=== PATIENT | male | born 1970 | race Caucasian/White ===

== ENCOUNTER 2021-07-13 07:40 | Outpatient (REF) | payer OTHER, SELFPAY ==
[2021-07-13 11:44] LABS: Alanine Aminotransferase 100 U/L (0-40); Albumin Level 4.4 g/dL (3.5-5.0); Alkaline Phosphatase 56 U/L (39-117); Anion Gap 14 (12-20); Aspartate Amino Transferase 51 U/L (5-37); Bilirubin Total 1.1 mg/dL (0.0-1.0); Blood Urea Nitrogen 16 mg/dL (9-16); Calcium 9.4 mg/dL (8.4-10.2); Carbon Dioxide 26 mmol/L (22-29); Chloride 101 mmol/L (96-108); Cholesterol 229 mg/dL; Estimated Glomerular Filt Rate > 60; Glucose Fasting 133 mg/dL (60-99); HDL Cholesterol 36 mg/dL; LDL Cholesterol Calculated 162 mg/dl; Sodium 137 mmol/L (135-145); Total Protein 7.2 g/dL (6.5-8.0); Triglycerides 159 mg/dL
[2021-07-13 12:05] LABS: Prostate Specific Antigen 3.35 ng/mL (<0.05-4.0)
== END 2021-07-13 07:41 | disposition home or self-care (01) ==
LOC: HO.MANLDS 07:40
PROVIDERS: PCP Internal Medicine; Visit Provider Internal Medicine
DX: Z12.5 Encounter for screening for malignant neoplasm of prostate (principal); I10 Essential (primary) hypertension; E78.00 Pure hypercholesterolemia, unspecified
CPT/HCPCS: 36415; 80053; 80061; 84153

== ENCOUNTER 2022-02-06 07:43 | Outpatient (REF) | payer OTHER, SELFPAY ==
[2022-02-06 14:16] LABS: Estimated Average Glucose 131 mg/dL; Hemoglobin A1c % 6.2 %
[2022-02-06 14:27] LABS: Alanine Aminotransferase 63 U/L (0-40); Albumin Level 4.2 g/dL (3.5-5.0); Alkaline Phosphatase 51 U/L (39-117); Aspartate Amino Transferase 30 U/L (5-37); Bilirubin Direct 0.5 mg/dL (0.0-0.5); Bilirubin Total 1.6 mg/dL (0.0-1.0); Total Protein 7.1 g/dL (6.5-8.0)
== END 2022-02-06 07:44 | disposition home or self-care (01) ==
LOC: HO.MANLDS 07:43
PROVIDERS: PCP Internal Medicine; Visit Provider Internal Medicine
DX: R73.01 Impaired fasting glucose (principal); R94.5 Abnormal results of liver function studies
CPT/HCPCS: 36415; 80076; 83036

== ENCOUNTER 2023-03-09 07:48 | Outpatient (REF) | payer OTHER, SELFPAY ==
[2023-03-09 11:24] LABS: MANUAL DIFF FLAG NO
[2023-03-09 11:36] LABS: Basophils Percent Auto 0.5 % (0-2); Eosinophils Absolute Auto 0.3 X10*3/uL (0.0-0.4); Eosinophils Percent Auto 5.9 % (0-4); Hematocrit 44.7 % (42.0-52.0); Hemoglobin 14.7 g/dl (14.0-18.0); Imm Gran Abs Auto 0.03 X10*3/uL (0.00-0.03); Imm Gran Pct Auto 0.5 % (0.0-0.4); Lymphocytes Absolute Auto 1.7 X10*3/uL (1.2-4.9); Lymphocytes Percent Auto 28.6 % (20-40); Mean Corpuscular HGB Conc 32.9 g/dl (31.0-36.0); Mean Corpuscular Hemoglobin 29.1 pg (27.0-33.0); Mean Corpuscular Volume 88.3 fL (80.0-98.0); Mean Platelet Volume 10.8 fL (9.4-12.4); Monocytes Absolute Auto 0.6 X10*3/uL (0.1-1.2); Monocytes Percent Auto 10.9 % (2-11); Neutrophils Absolute Auto 3.1 x10*3/uL (2.0-8.3); Neutrophils Percent Auto 53.6 % (45-73); Platelet Count 220 X10*3/uL (160-400); Red Blood Count 5.06 X10*6/uL (4.60-5.80); Red Cell Distribution Width 12.5 % (11.0-16.0); White Blood Count 5.8 X10*3/uL (4.8-10.8)
[2023-03-09 12:02] LABS: Estimated Average Glucose 148 mg/dL; Hemoglobin A1c % 6.8 %
[2023-03-09 12:51] LABS: Alanine Aminotransferase 99 U/L (0-40); Albumin Level 3.9 g/dL (3.5-5.0); Alkaline Phosphatase 52 U/L (39-117); Anion Gap 10 (12-20); Aspartate Amino Transferase 50 U/L (5-37); Bilirubin Total 1.6 mg/dL (0.0-1.0); Blood Urea Nitrogen 15 mg/dL (9-16); Calcium 9.2 mg/dL (8.4-10.2); Carbon Dioxide 27 mmol/L (22-29); Chloride 103 mmol/L (96-108); Cholesterol 203 mg/dL; Estimated Glomerular Filt Rate > 60; Glucose Random 160 mg/dL (60-115); HDL Cholesterol 30 mg/dL; LDL Cholesterol Calculated 127 mg/dl; Potassium 4.1 mmol/L (3.3-5.1); Sodium 136 mmol/L (135-145); Triglycerides 233 mg/dL
[2023-03-09 12:56] LABS: Prostate Specific Antigen 3.41 ng/mL (<0.05-4.0)
[2023-03-09 13:12] LABS: Vitamin D 25-OH Total 26.2 ng/mL (>30)
== END 2023-03-09 07:49 | disposition home or self-care (01) ==
LOC: HO.MANLDS 07:48
PROVIDERS: Visit Provider Internal Medicine
DX: I10 Essential (primary) hypertension (principal); R73.01 Impaired fasting glucose; Z12.5 Encounter for screening for malignant neoplasm of prostate
CPT/HCPCS: 36415; 80053; 80061; 82306; 83036; 84153; 85025

== ENCOUNTER 2023-05-30 08:36 | Outpatient (REF) | payer OTHER, SELFPAY ==
[2023-05-30 12:51] LABS: Estimated Average Glucose 120 mg/dL; Hemoglobin A1c % 5.8 % (<6.0)
== END 2023-05-30 08:37 | disposition home or self-care (01) ==
LOC: HO.MANLDS 08:36
PROVIDERS: Visit Provider Internal Medicine
DX: E11.9 Type 2 diabetes mellitus without complications (principal)
CPT/HCPCS: 36415; 83036

== ENCOUNTER 2023-12-19 08:11 | Outpatient (REF) | payer OTHER, SELFPAY ==
[2023-12-19 13:51] LABS: Estimated Average Glucose 123 mg/dL; Hemoglobin A1c % 5.9 % (<6.0)
== END 2023-12-19 08:12 | disposition home or self-care (01) ==
LOC: HO.MANLDS 08:11
PROVIDERS: Visit Provider Internal Medicine
DX: E11.9 Type 2 diabetes mellitus without complications (principal)
CPT/HCPCS: 36415; 83036

== ENCOUNTER 2024-11-14 07:52 | Outpatient (REF) | payer OTHER, SELFPAY ==
--- OUTSIDE RECORDS SUMMARY | 2024-11-14 07:58 | XMS_ITS | Data Portability ---
Author Organization [facility] Service Address [address] [place] [address] Assessment Encounter Date Assessment Date Assessment LastModified by Organization Details LastModified Time 11/10/2022 11/10/2022 [id number] [place] [id number] ([employer]) : MDM LOW MUST MEET 2 OF 3 ELEMENTS: PROBLEMS, DATA OR RISK ELEMENT 1: PROBLEMS ADDRESSED (LOW): 2 OR MORE SELF-LIMITED OR MINOR PROBLEMS OR 1 STABLE CHRONIC ILLNESS OR 1 ACUTE UNCOMPLICATED ILLNESS OR INJURY ELEMENT 2: DATA TO BE REVISED AND ANALYZED (LOW) MUST MEET 1 OF 2 CATEGORIES: CATEGORY 1. REVIEW OF PRIOR EXTERNAL NOTES/RESULTS, ORDERING OF TEST(S) CATEGORY 2. ASSESSMENT REQUIRING INDEPENDENT HISTORIAN(S) INCLUDE WHO THE HISTORIAN IS AND RELATION TO PT AND WHY PT IS UNABLE TO GIVE COMPLETE HISTORY ELEMENT 3: RISK (LOW) RISK OF COMPLICATIONS AND/OR MORBIDITY OR MORTALITY OF PATIENT MANAGEMENT PROVIDER MUST THOROUGHLY DOCUMENT ALL OF THE ELEMENTS COVERED Not available 11/10/2022 14:05:52 03/14/2023 03/14/2023 [id number] [place] [address] ([employer]) MDM HIGH MUST MEET 2 OUT OF 3 ELEMENTS: PROBLEMS, DATA OR RISK ELEMENT 1: PROBLEMS 1 OR MORE CHRONIC ILLNESS W/SEVERE EXACERBATION, PROGRESSION MAY REQUIRE HOSPITAL LEVEL CARE OR 1 ACUTE OR CHRONIC ILLNESS OR INJURY THAT POSES A THREAT TO LIFE OR BODILY FUNCTION ELEMENT 2: DATA: MUST MEET 2 OF 3 CATEGORIES CATEGORY 1 REVIEW OF PRIOR EXTERNAL NOTES REVIEW OF THE RESULTS ORDERING OF EACH TEST ASSESSMENT REQUIRING INDEPENDENT HISTORIAN(S) CATEGORY 2: INDEPENDENT INTERPRETATION OF TESTS BY ANOTHER PROVIDER/SPECIALI ST CATEGORY 3: DISCUSSION OF MGT OR TEST INTERPRETATION W/EXTERNAL PHYSICIAN/SPECIAL IST ELEMENT 3: RISK HIGH RISK OF MORBIDITY FROM ADDITIONAL DIAGNOSTIC TESTING OR TREATMENT PROVIDER MUST THOROUGHLY DOCUMENT EACH ELEMENT THAT IS COVERED Not available 03/14/2023 10:16:02 06/04/2023 06/04/2023 [id number] [place] [id number] ([employer]) : MDM LOW MUST MEET 2 OF 3 ELEMENTS: PROBLEMS, DATA OR RISK ELEMENT 1: PROBLEMS ADDRESSED (LOW): 2 OR MORE SELF-LIMITED OR MINOR PROBLEMS OR 1 STABLE CHRONIC ILLNESS OR 1 ACUTE UNCOMPLICATED ILLNESS OR INJURY ELEMENT 2: DATA TO BE REVISED AND ANALYZED (LOW) MUST MEET 1 OF 2 CATEGORIES: CATEGORY 1. REVIEW OF PRIOR EXTERNAL NOTES/RESULTS, ORDERING OF TEST(S) CATEGORY 2. ASSESSMENT REQUIRING INDEPENDENT HISTORIAN(S) INCLUDE WHO THE HISTORIAN IS AND RELATION TO PT AND WHY PT IS UNABLE TO GIVE COMPLETE HISTORY ELEMENT 3: RISK (LOW) RISK OF COMPLICATIONS AND/OR MORBIDITY OR MORTALITY OF PATIENT MANAGEMENT PROVIDER MUST THOROUGHLY DOCUMENT ALL OF THE ELEMENTS COVERED Not available 06/04/2023 12:28:48 12/21/2023 12/21/2023 [id number] [place] [address] ([employer]) MDM MODERATE MUST MEET 2 OUT OF 3 ELEMENTS: PROBLEMS, DATA OR RISK ELEMENT 1: PROBLEMS ADDRESSED 1 OR MORE CHRONIC ILLNESS WITH EXACERBATION OR 2 OR MORE STABLE CHRONIC ILLNESSES OR 1 UNDIAGNOSED NEW PROBLEM OR 1 ACUTE ILLNESS W/SYMPTOMS OR 1 ACUTE COMPLICATED INJURY ELEMENT 2: DATA MUST MEET 1 OF 3 CATEGORIES CATEGORY 1: REVIEW OF PRIOR EXTERNAL NOTES, REVIEW OF RESULTS, ORDERING OF EACH TEST, ASSESSMENT REQUIRING INDEPENDENT HISTORIAN OR CATEGORY 2: INDEPENDENT INTERPRETATION OF TESTS BY ANOTHER PHYSICIAN OR SPECIALIST OR CATEGORY 3: DISCUSSION OF MGT OR TEST INTERPRETATION W/EXTERNAL PHYSICIAN OR SPECIALIST ELEMENT 3: RISK RISK OF COMPLICATIONS AND/OR MORBIDITY OR MORTALITY OF PATIENT MANAGEMENT PROVIDER MUST THOROUGHLY DOCUMENT EACH ELEMENT THAT IS COVERED Not available 12/21/2023 10:49:53 10/13/2024 10/13/2024 [id number] [place] [id number] ([employer]) MDM MODERATE MUST MEET 2 OUT OF 3 ELEMENTS: PROBLEMS, DATA OR RISK ELEMENT 1: PROBLEMS ADDRESSED 1 OR MORE CHRONIC ILLNESS WITH EXACERBATION OR 2 OR MORE STABLE CHRONIC ILLNESSES OR 1 UNDIAGNOSED NEW PROBLEM OR 1 ACUTE ILLNESS W/SYMPTOMS OR 1 ACUTE COMPLICATED INJURY ELEMENT 2: DATA MUST MEET 1 OF 3 CATEGORIES CATEGORY 1: REVIEW OF PRIOR EXTERNAL NOTES, REVIEW OF RESULTS, ORDERING OF EACH TEST, ASSESSMENT REQUIRING INDEPENDENT HISTORIAN OR CATEGORY 2: INDEPENDENT INTERPRETATION OF TESTS BY ANOTHER PHYSICIAN OR SPECIALIST OR CATEGORY 3: DISCUSSION OF MGT OR TEST INTERPRETATION W/EXTERNAL PHYSICIAN OR SPECIALIST ELEMENT 3: RISK RISK OF COMPLICATIONS AND/OR MORBIDITY OR MORTALITY OF PATIENT MANAGEMENT PROVIDER MUST THOROUGHLY DOCUMENT EACH ELEMENT THAT IS COVERED Not available 10/13/2024 10:40:57 Plan of Treatment Reminders Order Date Submit Date Provider Last Modified By Organization Details Last Modified Time Details Appointments FOLLOW UP 15 2024 09:30A M DR DING Not available Not available Not available Lab HbA1c (hemoglob in A1c), blood 2024 025 [facility], [address] [place] [address], [id number], 10/13/2024 10:49:08 HbA1c (hemoglob in A1c), blood 2022 023 [facility], [address] [place] [address], [id number], 06/04/2023 12:35:26 HbA1c (hemoglob in A1c), blood 2022 023 [facility], [address] [place] [address], [id number], 03/14/2023 10:10:38 HbA1c (hemoglob in A1c), blood 2022 023 [facility], [address] [place] [address], [id number], 11/10/2022 14:15:26 CMP, serum or plasma 2022 023 [facility], [address] [place] [address], [id number], 03/12/2023 11:09:47 CBC 2022 023 [facility], [address] [place] [address], [id number], 11/10/2022 14:15:26 lipid panel, blood 2022 023 [facility], [address] [place] [address], [id number], 11/10/2022 14:15:26 PSA, serum or plasma 2022 023 [facility], [address] [place] [address], [id number], 11/10/2022 14:15:26 vitamin D, 25-hydrox y, total, serum 2022 023 [facility], [address] [place] [address], [id number], 11/10/2022 14:15:26 Referral None recorded. Procedures None recorded. Surgeries None recorded. Imaging None recorded. Medication Orders Ozempic 0.25 mg or 0.5 mg (2 mg/1.5 mL) subcutane ous pen injector 2022 023 [facility]/Pharmacy #[facility], [address] [place], [address], 03/14/2023 10:42:26 escitalop fan 10 mg tablet 2022 023 [facility]/Pharmacy #5, [address] [place], [address], 03/14/2023 09:28:34 diazepam 5 mg tablet 2022 023 [facility]armacy #[facility], [address] [place], [address], 03/14/2023 09:28:31 Patient TargetsNo targets recorded. Patient Instructions Encounter Date Encounter Id Patient Instructions Last Modified By Organization Details Last Modified Time 11/10/2022 [id number] prediabetes: car e instructions Not available 11/10/2022 14:11:53 learning about stress Not available 11/10/2022 14:11:53 03/14/2023 [id number] learning about type 2 diabetes Not available 03/14/2023 10:07:10 type 2 diabetes: care instructions Not available 03/14/2023 10:07:10 10/13/2024 [id number] prediabetes: car e instructions Not available 10/13/2024 10:43:12 sleep apnea: car e instructions Not available 10/13/2024 10:43:12 ojeda's palsy: care instructions Not available 10/13/2024 10:43:12 Reason for Referral None Reported. Results Created Date Observation Date Name Description Value Unit Range Abnormal Flag Note LastModifiedBy Organization Detail LastModifiedTime Result Notes None recorded. Problems Name Problem SNOMED Code Status Onset Date Resolution Date Notes Provider Name and Address Organization Details Recorded Time Hyperten sive disorder 34391232 Active 2019 Not Available [facility] 3 13:57:34 Serum choleste rol borderli [place] 994994546 Active 2019 Not Available [facility] 3 13:57:34 Obesity 887830415 Active 2019 Not Available [facility] 3 13:57:34 Obstruct derek sleep apnea syndrome 12023618 Active 2019 Not Available [facility] 3 13:57:34 Arthriti s of knee 229033630 Active 2020 Not Available [facility] 3 13:57:34 Impaired fasting glycemia 908730315 Active 2021 Not Available [facility] 3 13:57:34 Panic attack 686119548 Active 2022 RUIZ REYES [address] [place], [address], [facility] 3 11:51:45 Stress 91628790 Active 2022 James Ding DO [address] [place], [address], [facility] 3 14:11:06 Type 2 diabetes mellitus 43047866 Completed 202206/04/2023 Removal Reason: able to get down to his pre diab level with a1c of 5.8 James Ding DO [address] [place], [address], [facility] 3 12:25:00 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 Medical Equipment None Reported. Allergies No known drug allergies Medications Name Sig Start Date Stop Date Status Note LastModified by Organization Details LastModified Time valacyclovi r 1 gram tablet TAKE 1 TABLET BY MOUTH THREE TIMES A DAY FOR 7 DAYS active Not Available Not Available No t Available meloxicam 15 mg tablet TAKE 1 TABLET BY MOUTH EVERY DAY FOR 30 DAYS 2024 active Not Available Not Available Not Avai lable FreeStyle Lancets 28 gauge USE TWICE A DAY active Not Available Not Available No t Available lisinopril 20 mg tablet TAKE 1 TABLET BY MOUTH EVERY DAY active Not Available Not Available No t Available prednisone 20 mg tablet TAKE 3 TABLETS (60 MG TOTAL) BY MOUTH DAILY WITH BREAKFAST FOR 7 DAYS. active Not Available Not Available No t Available diazepam 10 mg tablet TAKE 1 TABLET BY MOUTH TWICE A DAY NEEDED FOR 5 DAYS 03/14 completed Not Available Not Available Not Available epinephrine 0.3 mg/0.3 mL injection, auto-inject or USE DIRECTED FOR ANAPHYLAX IS AND CALL 911 active Not Available Not Available No t Available diazepam 5 mg tablet Take 1 tablet twice a day by oral route as needed for 30 days. 03/14 completed Not Available Not Available Not Available escitalopra m 10 mg tablet Take 1 tablet every day by oral route for 30 days. 03/14 completed Not Available Not Available Not Available FreeStyle Lite Meter kit USE DIRECTED. active Not Available Not Available No t Available OneTouch Verio test strips USE 1 STRIP EVERY DAY BY MISCELL ROUTE active Not Available Not Available No t Available OneTouch Verio Flex Meter USE DIRECTED. active Not Available Not Available No t Available Ozempic 0.25 mg or 0.5 mg (2 mg/1.5 mL) subcutaneou s pen injector Inject 0.25 mg every week by subcutane ous route for 30 days. 03/14 completed Not Available Not Available Not Available OneTouch Delica Plus Lancet 33 gauge USE DIRECTED. ONCE DAILY active Not Available Not Available No t Available Ozempic 0.25 mg or 0.5 mg (2 mg/3 mL) subcutaneou s pen injector Inject 0.25 mg every week by subcutane ous route for 90 days. 06/04 completed Not Available Not Available Not Available Vitals Date Recorded Body height Body mass index (BMI) Body weight Heart rate Oxygen saturation Oxygen saturation in Arterial blood by Pulse oximetry Systolic blood pressure Diastolic blood pressure Provider Name and Address Organization Details Last Updated DateTime 3 177.17 cm 44.2 kg/m2 312584. 98 g 97 /min 99 % 99 % 150 mm[Hg] 80 mm[Hg] James iDng, DO [address] [place] [address], [address] [facility] 3 13:43:33 Date Recorded Body height Body mass index (BMI) Body weight Heart rate Oxygen saturation Oxygen saturation in Arterial blood by Pulse oximetry Systolic blood pressure Diastolic blood pressure Provider Name and Address Organization Details Last Updated DateTime 3 177.17 cm 44.1 kg/m2 206261. 75 g 120 /min 98 % 98 % 150 mm[Hg] 80 mm[Hg] James Ding, DO [address] [place] [address], [address] [facility] 3 09:29:43 Date Recorded Body height Body mass index (BMI) Body weight Heart rate Oxygen saturation Oxygen saturation in Arterial blood by Pulse oximetry Systolic blood pressure Diastolic blood pressure Provider Name and Address Organization Details Last Updated DateTime 3 177.17 cm 41.2 kg/m2 530310. 83 g 85 /min 98 % 98 % 136 mm[Hg] 80 mm[Hg] Dacia Paul [facility] 3 11:42:50 Date Recorded Body height Body mass index (BMI) Body weight Heart rate Oxygen saturation Oxygen saturation in Arterial blood by Pulse oximetry Systolic blood pressure Diastolic blood pressure Provider Name and Address Organization Details Last Updated DateTime 4 177.17 cm 41 kg/m2 243531. 23 g 103 /min 98 % 98 % 130 mm[Hg] 64 mm[Hg] James Ding, DO [address] [place], [address], [facility] 4 10:09:10 Date Recorded Body height Body mass index (BMI) Body weight Heart rate Oxygen saturation Oxygen saturation in Arterial blood by Pulse oximetry Systolic blood pressure Diastolic blood pressure Provider Name and Address Organization Details Last Updated DateTime 5 177.17 cm 41 kg/m2 630396. 23 g 115 /min 98 % 98 % 160 mm[Hg] 100 mm[Hg] Dacia Simmonsmond [facility] 5 10:23:38 Social History Question Answer Notes LastModified by Organizat ion Details LastModified Time Tobacco Smoking Status Never Smoker Not Available [facility] 07/20/2020 03:36:23 What Was The Date Of Your Most Recent Tobacco Screening? 10/13/2024 [email or web address] Information not available 10/13/2024 Do You Or Have You Ever Used Any Other Forms Of Tobacco Or Nicotine? No Information not available 11/10/2022 Sex: Unknown Functional Status None recorded. Mental Status None recorded. Family History Nothing Reported. Medical History No medical history recorded. Immunizations Vaccine Type Date Status Note Provider Nam e and Address Organization Details Recorded Time Td (adult) 07/23/2021 completed Not Available [facility] 10/31/2022 13:57:34 COVID-19, mRNA, LNP-S, PF, 100 mcg/0.5mL dose or 50 mcg/0.25mL dose 09/20/2021 completed Martha Gencarelle julieta [facility] 11/10/2022 13:32:47 COVID-19, mRNA, LNP-S, PF, 100 mcg/0.5mL dose or 50 mcg/0.25mL dose 10/13/2020 completed Martha Gencarelle julieta [facility] 11/10/2022 13:32:47 COVID-19, mRNA, LNP-S, PF, 100 mcg/0.5mL dose or 50 mcg/0.25mL dose 11/13/2020 completed Martha Gencarelle [facility] 11/10/2022 13:32:47 Past Encounters Encounter ID Performer Location Encounter Start Date Encounter Closed Date Diagnosis/Indication Diagnosis SNOMED-CT Code Diagnosis ICD10 Code Diagnosis Note [id number] James Ding [facility] [address] [facility], [place] [address] 09/30/2019 09:01:55 09/30/2019 09:36:07 Hypertensive disorder 35996717 I10 will need to follow as his bp is borderline and his wgt gain is huge Serum chol esterol borderline high 667603964 E78.00 will need fbw Obesity 930592960 E66.9 will need to go on crash diet etc Pain in left knee 037388 8082 90480 M25.562 hurt overt the summer xr needed ? meniscal injury Obstructiv e sleep apnea syndrome 57443798 G47.33 needs study Pain in right heel 75115 17981 614388 M79.671 needs xr [id number] James Ding [facility] [address] [facility],[place] [address] 10/10/2019 14:31:21 10/10/2019 15:40:17 Obstructive sleep apnea syndrome 72762094 G47.33 needs cpap device will call Hypertensive disorder 38 578777 I10 will need to follow as his bp is borderline and his wgt gain is huge await after tx for sleep apnea Osteoarthr itis of knee 535426857 M17.9 will need to follow wgt loss is mahoney [id number] James Ding DO [facility] [address] [facility],[place] [address] 01/12/2020 13:51:13 01/12/2020 14:31:33 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 0695030612 65956 G56.12 Obstructiv e sleep apnea syndrome 83321558 G47.33 doing great with new cpap device Hypertensive disorder 38 630455 I10 will cont lisinopril for now but anticipate [place] [id number] James Ding [facility] [address] [facility], [place] [address] 02/06/2020 09:18:38 02/06/2020 09:54:18 Hypertensive disorder 91459667 I10 will cont lisinopril for now but anticipate we will be able to lower dose as MANNY d cont tx Obstructiv e sleep apnea syndrome 96936905 G47.33 doing great with new cpap device Obesity 513176962 E66.9 will need to keep exercising and working hard no wgt loss but pants fitting much better [id number] James Ding [facility] [address] [facility] [facility] [place] [place] [address] 01/14/2021 09:05:42 01/14/2021 11:20:17 Hypertensive disorder 50407509 I10 will cont lisinopril for now but anticipate we will be able to lower dose as MANNY d cont tx Serum chol esterol borderline high 363131583 E78.00 will need fbw Arthritis of knee 519276 002 M13.869 [id number] James Ding [facility] [address] [facility], [place] [address] 07/20/2021 09:01:30 07/20/2021 09:52:00 Hypertensive disorder 20388825 I10 will cont lisinopril for now but anticipate we will be able to lower dose as MANNY d cont tx Obstructiv e sleep apnea syndrome 56905891 G47.33 doing great with new cpap device Liver func tion tests outside reference range 560817059 R94.5 elevated and he will stop etoh and rechk Impaired f asting glycemia 225191536 R73.01 Hearing loss 57511342 H9 1.93 [id number] James Ding [facility] [address] [facility],[place] [address] 02/17/2022 11:58:21 02/17/2022 13:03:03 Hypertensive disorder 20944318 I10 will cont lisinopril for now but anticipate we will be able to lower dose as MANNY d cont tx Serum chol esterol borderline high 076318024 E78.00 will need fbw Screening for malignant neoplasm of colon 487613500 Z12.11 will order Impaired f asting glycemia 555692784 R73.01 a1c is 6.2 and we will cont to follow [id number] James Ding [facility] [address] [facility],[place] [address] 11/10/2022 13:32:01 11/10/2022 14:18:04 Hypertensive disorder 40068737 I10 will cont lisinopril for now but anticipate we will be able to lower dose as MANNY cont tx Impaired f asting glycemia 756196580 R73.01 a1c is 6.2 and we will cont to follow Stress 14077558 Z73.3 [id number] James Ding [facility] [address] [facility],[address] [facility] [place] [address] 03/14/2023 09:21:34 03/14/2023 10:29:11 Hypertensive disorder 65543064 I10 will cont lisinopril for now but anticipate we will be able to lower dose as MANNY cont tx Obstructiv e sleep apnea syndrome 31610156 G47.33 doing great with new cpap device Screening for malignant neoplasm of colon 028361880 Z12.11 will order Type 2 olga betes mellitus 08848990 E11.9 new onset long discussion [id number] James Ding [facility] [address] [facility],[place] [address] 06/04/2023 11:09:01 06/04/2023 12:58:29 Hypertensive disorder 23316123 I10 will cont lisinopril for now but anticipate we will be able to lower dose as MANNY cont tx Impaired f asting glycemia 923542061 R73.01 a1c is 6.2 and we will cont to follow [id number] James Ding [facility] [address] [facility],[place] [address] 12/21/2023 10:01:33 12/21/2023 10:59:07 Hypertensive disorder 49358343 I10 will cont lisinopril for now but anticipate we will be able to lower dose as MANNY cont tx Obesity 249353185 E66.9 will need to keep exercising and working hard no wgt loss but pants fitting much better Impaired f asting glycemia 884220966 R73.01 a1c is 5.9 doing great and we will cont to follow [id number] DO [facility] [address] [facility],[place] [address] 10/13/2024 10:16:25 10/13/2024 10:47:53 Hypertensive disorder 54309786 I10 stress at home is a factorwill check bp at home and bring in readings in 1 month 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 almost total resolution Obstructiv e sleep apnea syndrome 21732746 G47.33 doing great with new cpap device Impaired f asting glycemia 680718481 R73.01 a1c is 5.9 doing great and we will cont to follow Health Concerns Section Related Observation LastModified by Organization Detai ls LastModified Time None Recorded Concern Status LastModified by Organization Details LastModified Time None Recorded Advance Directives Directive None Recorded Payers Encounter Date Sequence Insurance Name Policy Number Policy [place] Covered Member ID [place] Member ID Guarantor Name 11/10/2022 1 [employer] [id number] 2 Jose C Fish [id number] Jose C Fish 03/14/2023 1 [employer] [id number] 2 Jose C Fish [id number] Jose C Fish 06/04/2023 1 [employer] [id number] 2 Jose C Fish [id number] Jose C Fish 12/21/2023 1 [employer] [id number] 2 Jose C Fish [id number] Jose C Fish 10/13/2024 1 [employer]) [id number] 2 Jose C Fish [id number] Jose C Fish Notes Date Note Type Note Provider Name and Address Organization Details Recorded Time 3 text/htm l here for rechkseen in ER last week for severe stress and soblong discuss re this stress and how it is bothering him daily James Ding DO [address] [facility], [place], [address], [facility] 11/10/2022 14:14:10 3 text/htm l here for rechk and is doing welldid not take any meds that we prescribed escitalopram and diazepam reviewed the lab in detail with pt has new onset type 2 dma1c is 6.8fbs is 160long detailed discussion ' James Ding DO [address] [place], [address], [facility] 03/14/2023 10:16:21 3 text/htm l here for rechk and is doing great and is eating betterand is doing ok with this he has been able to drop 20+lbs!!!heis a1c is no w down to prediabet level of 5.8!! James Ding DO [address] [place], [address], [facility] 06/04/2023 12:31:46 4 text/htm l Care Management - HypertensionReported bypatient.Self Care:not under emotional stress Severity:symptoms are improving; does not interfere with daily activities Associated Symptoms:no dizziness; no lightheadedness; no chest pain; no shortness of breath; no palpitations; no edema; no calf muscle cramps; no blurred vision; no confusion; no headaches; no fatigue here for rechk and is doing good with diet and is eating much betterhas not lost wgt but clothes are def fitting betterhas cut back on anusf4a is 5.9 James Ding DO [address] [place], [address], [facility] 12/21/2023 10:50:35 5 text/htm l Care Management - HypertensionReported bypatient.Self Care:not under emotional stress Severity:symptoms are improving; does not interfere with daily activities Associated Symptoms:no dizziness; no lightheadedness; no chest pain; no shortness of breath; no palpitations; no edema; no calf muscle cramps; no blurred vision; no confusion; no headaches; no fatigue here for rechk and is doing ok except for the stresshe feels well very active but put on some weightno major issues other than family stresswill be getting abp cuff for home James Ding, DO [address] [facility], [place], [address], [facility] 10/13/2024 10:44:36
[2024-11-14 13:52] LABS: Estimated Average Glucose 137 mg/dL; Hemoglobin A1C 186.7386 umol/L; Hemoglobin A1c % 6.4 % (<6.0); Total Hemoglobin (HGBA1C) 3979.7606 umol/L
== END 2024-11-14 07:53 | disposition home or self-care (01) ==
LOC: HO.MANLDS 07:52
PROVIDERS: Visit Provider Internal Medicine
DX: R73.01 Impaired fasting glucose (principal)
CPT/HCPCS: 36415; 83036

== ENCOUNTER 2025-03-26 22:08 | Day surgery (SDC) | payer OTHER, SELFPAY ==
--- NOTE | ~2025-03-26 | XR_ITS ---
CLINICAL HISTORY: fb 1 view chest x-ray Comparison: None provided Findings: The lungs are clear. Heart size is normal. No acute fracture. IMPRESSION: 1. No acute findings. This document has been electronically signed by: Blake Manzanares MD, PHD on 03/27/2025 01:20:36
[2025-03-26 22:11] VITALS: BP 150/91; PULSE 113; RESP 18; TEMP 36.9; O2SAT 98; BMI 45.6
--- NOTE | 2025-03-26 22:32 | ECG_ITS ---
Test Reason : cp Blood Pressure : */* mmHG Vent. Rate : 103 BPM Atrial Rate : 103 BPM P-R Int : 180 ms QRS Dur : 102 ms QT Int : 344 ms P-R-T Axes : 57 -47 13 degrees QTcB Int : 450 ms Sinus tachycardia Left anterior fascicular block Abnormal ECG Referred By: Anali Alcaraz Electronically Signed By: Franco Cornelius
[2025-03-26 22:52] LABS: MANUAL DIFF FLAG NO
[2025-03-26 22:53] LABS: Hematocrit 42.7 % (42.0-52.0); Hemoglobin 15.5 g/dl (14.0-18.0); Imm Gran Abs Auto 0.03 X10*3/uL (0.00-0.03); Imm Gran Pct Auto 0.5 % (0.0-0.4); Lymphocytes Absolute Auto 2.2 X10*3/uL (1.2-4.9); Mean Corpuscular HGB Conc 36.3 g/dl (31.0-36.0); Mean Corpuscular Hemoglobin 30.3 pg (27.0-33.0); Mean Corpuscular Volume 83.6 fL (80.0-98.0); NRBC Abs Auto 0.000 X10*3/uL (0.0-0.012); NRBC Pct Auto 0.0 /100WBC (0.0-0.2); Platelet Count 232 X10*3/uL (160-400); Red Blood Count 5.11 X10*6/uL (4.60-5.80); White Blood Count 6.5 X10*3/uL (4.8-10.8)
--- NOTE | 2025-03-26 23:30 | ED.SKABFB ---
HPI - Skin/Abscess/Foreign Bdy General Chief complaint: Skin/Abscess/Foreign Body Stated complaint: food stuck in throat Time Seen by Provider: 03/26/25 22:30 History of Present Illness HPI narrative: Patient is a 54-year-old male presented today after eating a piece of chicken feeling that it got stuck in his esophagus. Patient unable to tolerate his own saliva well. He is able to to not bring it up but he feels like it gets stuck there. Patient denies any shortness of breath. There is no change in voice. Patient is from home. Had a history of something similar a few years ago but it passed on its own. This time it did not. The symptoms started about 2 hours ago. Related Data Previous Rx's ?Medication ?Instructions ?Recorded omeprazole 20 mg capsule,delayed 20 mg PO DAILY #90 caps 03/27/25 release Allergies Allergy/AdvReac Type Severity Reaction Status Date / Time nut - unspecified Allergy Stomach Verified 03/26/25 22:12 Upset Review of Systems Review of Systems: Positive foreign body sensation Yes all other systems are reviewed and are negative [facility] Past Medical History Attestation statement: The following information was validated with the patient. Medical History (Updated 03/27/25 @ 02:36 by Soham Petersen MD) Obstructive sleep apnea on CPAP Hypertension Morbid obesity Social History Social History Advance Directives: No Advance Directives Information Provided: Yes Physical Exam Vital Signs: Vital Signs: Last Vital Signs Temp 98.5 F 03/27/25 02:35 Pulse 115 H 03/27/25 02:35 Resp 19 03/27/25 02:35 BP 143/85 H 03/27/25 02:35 Pulse Ox 97 03/27/25 02:35 O2 Del Method Room Air 03/27/25 02:35 BMI result Body Mass Index 45.6 Appearance: Alert. Oriented X3. No acute distress. Eyes: Pupils equal, round and reactive to light. ENT: Pharynx normal. Neck: Normal inspection. Neck supple. No lymph nodes noted. No crepitus CVS: Normal heart rate and rhythm. Pulses normal. Normal S1 and S2 Respiratory: No respiratory distress. Breath sounds normal. No Wheezing. No rales Abdomen: Soft and nontender. No rigidity. No distention. good BS x4 Skin: Skin warm and dry. Normal skin color. Normal skin turgor. Extremities: No lower extremity edema. Neurovascular intact to all extremities. No Lacerations. No Rash Neuro: Oriented X 3. No motor deficit. No sensory deficit. Moving all extermities. No slurred speech Medications Administered Discontinued Medications Generic Name Dose Route Start Last Admin Trade Name Peterq PRN Reason Stop Dose Admin Glucagon 1 mg 03/26/25 22:31 03/26/25 22:55 Glucagon Hcl 1 Mg Vial IVPUSH 03/26/25 22:32 1 mg ONCE ONE Administration Sodium Chloride 500 mls @ 999 mls/hr 03/26/25 22:45 03/26/25 22:56 Ns IV 03/26/25 23:15 999 mls/hr .Q31M NINFA Administration Nitroglycerin 0.4 mg 03/27/25 00:02 03/27/25 00:35 Nitroglycerin 0.4 Mg Tab.Subl SUBLINGUAL 03/27/25 00:03 0.4 mg ONCE ONE Administration Medical Decision Making Medical Decision Making [facility] Narrative: Patient well-appearing question food impaction. Symptoms started after eating a piece of chicken. Patient in no distress. His EKG showed a sinus pattern heart rate is 100 NC QRS QTC normal no acute ST segment elevation symptoms not consistent with ACS. A dose of glucagon was given. The glucagon did not work. Patient was given some nitroglycerin with only moderate relief. The GI team was consulted. Patient being taken to the OR for endoscopy. Currently in stable condition. Differential Diagnosis Differential Diagnoses: The differential diagnosis associated with the presentation includes Food impaction, dehydration Admission/Observation Consideration of admission/observation: Escalation of care including admission/observation considered Consult Healthcare Provider Management of the patient was discussed with: [employer] Supervisor (GI) Lab Data [facility] Lab Attestation statement: I reviewed the patient's lab results. 03/26/25 22:48 03/26/25 23:19 Labs: Lab Results 03/26/25 03/26/25 Range/Units 22:48 23:19 WBC 6.5 (4.8-10.8) X10*3/uL RBC 5.11 (4.60-5.80) X10*6/uL Hgb 15.5 (14.0-18.0) g/dl Hct 42.7 (42.0-52.0) % MCV 83.6 (80.0-98.0) fL MCH 30.3 (27.0-33.0) pg MCHC 36.3 H (31.0-36.0) g/dl RDW 12.3 (11.0-16.0) % Plt Count 232 (160-400) X10*3/uL MPV 9.6 (9.4-12.4) fL Immature Gran % (Auto) 0.5 H (0.0-0.4) % Neut % (Auto) 52.9 (45-73) % Lymph % (Auto) 33.5 (20-40) % Crane % (Auto) 9.6 (2-11) % Eos % (Auto) 3.2 (0-4) % Baso % (Auto) 0.3 (0-2) % Lymph # (Auto) 2.2 (1.2-4.9) X10*3/uL Crane # (Auto) 0.6 (0.1-1.2) X10*3/uL Eos # (Auto) 0.2 (0.0-0.4) X10*3/uL Baso # (Auto) 0.0 (0.0-0.2) X10*3/uL Abs Immat Gran (auto) 0.03 (0.00-0.03) X10*3/uL Absolute Neuts (auto) 3.4 (2.0-8.3) x10*3/uL Absolute Nucleated RBC 0.000 (0.0-0.012) X10*3/uL Nucleated RBC % (auto) 0.0 (0.0-0.2) /100WBC Sodium 136 (135-145) mmol/L Potassium 4.5 (3.3-5.1) mmol/L Chloride 107 (96-108) mmol/L Carbon Dioxide 22 (22-29) mmol/L Anion Gap 12 (12-20) BUN 12 (9-16) mg/dL Creatinine 0.99 (0.5-1.4) mg/dL Estim Creat Clear Calc 116.4 Estimated GFR > 60 Random Glucose 204 H (60-115) mg/dL Calcium 9.6 (8.4-10.2) mg/dL Total Bilirubin 1.2 H (0.0-1.0) mg/dL Direct Bilirubin 0.3 (0.0-0.5) mg/dL AST 56 H (5-37) U/L ALT 109 H (0-40) U/L Alkaline Phosphatase 53 (39-117) U/L Troponin I High Sens 4.1 (<3.5-35.0) ng/L Total Protein 7.3 (6.5-8.0) g/dL Albumin 4.5 (3.5-5.0) g/dL Lipase 46 (8-78) U/L Radiology Impression Discussion of test interpretation with radiology: I have reviewed the radiologist's reading. Independent Historian Clinical information obtained from an independent historian. History obtained from or confirmed by: Spouse Chronic Conditions History of hypertension Discharge Plan Discharge Clinical Impression: Food impaction of esophagus Patient Disposition: Home, Self-Care Instructions: Food Impaction (ED) Prescriptions: New omeprazole 20 mg capsule,delayed release(DR/EC) 20 mg PO DAILY Qty: 90 0RF Referrals: James Florez MD [Primary Care Provider, Medical] - 1 week Marilu Kwan MD [Physician, Gastroenterology] - 04/03/25 Print Language: Spanish
--- NOTE | 2025-03-26 23:33 | PC.NURSE ---
pt notes sensation has decreased somewhat
[2025-03-26 23:38] LABS: Alanine Aminotransferase 109 U/L (0-40); Albumin Level 4.5 g/dL (3.5-5.0); Alkaline Phosphatase 53 U/L (39-117); Anion Gap 12 (12-20); Aspartate Amino Transferase 56 U/L (5-37); Blood Urea Nitrogen 12 mg/dL (9-16); Calcium 9.6 mg/dL (8.4-10.2); Carbon Dioxide 22 mmol/L (22-29); Chloride 107 mmol/L (96-108); Creatinine Clr Calc Pharmacy 116.4; Estimated Glomerular Filt Rate > 60; Lipase 46 U/L (8-78); Potassium 4.5 mmol/L (3.3-5.1); Sodium 136 mmol/L (135-145); Total Protein 7.3 g/dL (6.5-8.0)
[2025-03-26 23:45] LABS: Troponin-I High Sensitivity 4.1 ng/L (<3.5-35.0)
[2025-03-27 01:09] VITALS: BP 135/74; PULSE 104; RESP 18; TEMP 36.6; O2SAT 98
--- NOTE | 2025-03-27 01:36 | HO.ANESPROP2 ---
HPI - Anesthesia Eval Consult details Narrative: Food impaction of esophagus PMFSH Active Problems Active Problems: All Active Problems Food impaction of esophagus (Acute) Past Medical History Medical History (Updated 03/27/25 @ 02:36 by Soham Petersen MD) Obstructive sleep apnea on CPAP Hypertension Morbid obesity Family History Family history of problems with anesthesia: No Surgical History History of Problems with Anesthesia: No Social History Social History Advance Directives: No Advance Directives Information Provided: Yes Meds Allergies Allergy/AdvReac Type Severity Reaction Status Date / Time nut - unspecified Allergy Stomach Verified 03/26/25 22:12 Upset Exam Height,Weight and Vital Signs: Height 5 ft 8 in Weight 135.9 kg Last Vital Signs Temp 97.9 F 03/27/25 01:09 Pulse 104 H 03/27/25 01:09 Resp 18 03/27/25 01:09 BP 135/74 03/27/25 01:09 Pulse Ox 98 03/27/25 01:09 O2 Del Method Room Air 03/27/25 01:09 Pertinent Lab Results Pertinent Lab Results: Laboratory Tests 03/26/25 03/26/25 22:48 23:19 WBC 6.5 RBC 5.11 Hgb 15.5 Hct 42.7 MCV 83.6 MCH 30.3 MCHC 36.3 H RDW 12.3 Plt Count 232 MPV 9.6 Immature Gran % (Auto) 0.5 H Neut % (Auto) 52.9 Lymph % (Auto) 33.5 [place] % (Auto) 9.6 Eos % (Auto) 3.2 Baso % (Auto) 0.3 Lymph # (Auto) 2.2 [place] # (Auto) 0.6 Eos # (Auto) 0.2 Baso # (Auto) 0.0 Abs Immat Gran (auto) 0.03 Absolute Neuts (auto) 3.4 Absolute Nucleated RBC 0.000 Nucleated RBC % (auto) 0.0 Sodium 136 Potassium 4.5 Chloride 107 Carbon Dioxide 22 Anion Gap 12 BUN 12 Creatinine 0.99 Estim Creat Clear Calc 116.4 Estimated GFR > 60 Random Glucose 204 H Calcium 9.6 Total Bilirubin 1.2 H Direct Bilirubin 0.3 AST 56 H ALT 109 H Alkaline Phosphatase 53 Troponin I High Sens 4.1 Total Protein 7.3 Albumin 4.5 Lipase 46 Airway Mallampati Class: II TM Dist: >3cm Neck ROM: Full Loose/Missing/Broken Teeth: No Heart: RRR Lungs: CTA Assessment and Plan Assessment Anesthesia Assessment: Anesthesia Plan Discussed and Chart Reviewed Final Anesthetic Review Family History of Problems with Anesthesia: No History of Problems with Anesthesia: No NPO: No ASA Class: III and Emergency Final Preanesthetic Review: No Changes in Pt Med Stat, Meds/Allgs Chart Reviewed, Consent Obtained/Reviewed and Anes Risks/Benef Reviewed Patient Risk: Intermediate Procedure Risk: Low Anesthetic Plan Anesthetic Plan: TIVA Disposition: Standard PACU
--- NOTE | 2025-03-27 01:38 | P.CNGI_ITS ---
History of Present Illness Data of Consult Service Date: 03/27/25 Requesting physician: Anali Alcaraz Primary Care Provider: James Florez MD [facility] Reason for consult: Food Impaction This is a 54-year-old gentleman past medical history of hypertension, obesity, who presents to the hospital for piece of chicken getting stuck at 7 p.m. this evening. Patient reports he was eating chicken, and may have eaten too fast, since then he has had sensation of food stuck in his mid chest. When he presented to ER he was unable to tolerate his secretions at all, was spitting up. Since getting glucagon and sublingual nitroglycerin, feels better, but he still has heaviness and pressure sensation in his chest. Reports at least 2 other episodes earlier this year, however both of those resolved spontaneously. He has never needed medical care for food impaction previously. No prior hx of endoscopy or colonoscopy. No family history of esophageal disorders including esophageal stricture or cancer. No report of progressive dysphagia personally. He does not take any blood thinners. Review of Systems 2 Review of Systems: Yes all other systems are reviewed and are negative PMFSH Past Medical History Medical History (Updated 03/27/25 @ 01:37 by Soham Petersen MD) Morbid obesity Social History Social History Advance Directives: No Advance Directives Information Provided: Yes Meds Allergies Allergy/AdvReac Type Severity Reaction Status Date / Time nut - unspecified Allergy Stomach Verified 03/26/25 22:12 Upset Active Medications: Current Medications Naloxone HCl (Naloxone Hcl 0.4 Mg/Ml Vial) 0.04 mg IVPUSH Q5M PRN PRN Reason: Excessive sedation or RR < 8 Ondansetron HCl (Ondansetron Hcl 4 Mg/2 Ml Vial) 4 mg IVPUSH ONCE PRN PRN Reason: Nausea and Vomiting Stop: 03/27/25 07:38 Physical Exam 2 Vital Signs: Vital Signs: Last Vital Signs Temp 97.9 F 03/27/25 01:09 Pulse 104 H 03/27/25 01:09 Resp 18 03/27/25 01:09 BP 135/74 03/27/25 01:09 Pulse Ox 98 03/27/25 01:09 O2 Del Method Room Air 03/27/25 01:09 BMI result Body Mass Index 45.6 No apparent distress Nonicteric Abdomen soft, nondistended Alert and oriented x3, normal gait Results Labs 03/26/25 22:48 03/26/25 23:19 Labs: Short CBC 03/26/25 Range/Units 22:48 WBC 6.5 (4.8-10.8) X10*3/uL Hgb 15.5 (14.0-18.0) g/dl Hct 42.7 (42.0-52.0) % Plt Count 232 (160-400) X10*3/uL BMP 03/26/25 23:19 Sodium 136 Potassium 4.5 Chloride 107 Carbon Dioxide 22 BUN 12 Creatinine 0.99 Calcium 9.6 Liver Function 03/26/25 Range/Units 23:19 Total Bilirubin 1.2 H (0.0-1.0) mg/dL Direct Bilirubin 0.3 (0.0-0.5) mg/dL AST 56 H (5-37) U/L ALT 109 H (0-40) U/L Alkaline Phosphatase 53 (39-117) U/L Albumin 4.5 (3.5-5.0) g/dL Assessment and Plan (1) Food impaction of esophagus: Status: Acute (2) Morbid obesity: Status: Acute Plan Presentation consistent with food impaction, food bolus is likely now partially obstructing vs has passed with meds. Reviewed with the patient, that will proceed with upper endoscopy to definitively evaluate. Plan: -please keep NPO -EGD anders in OR -Pt aware may need elective airway protection since solid intake for <8 hours ago but will defer to anesthesia assessment -further recommendations to follow in the upper endoscopy Procedures Date of Service Date of Service: 03/27/25
[2025-03-27 02:35] VITALS: BP 143/85; PULSE 115; RESP 19; TEMP 36.9; O2SAT 97
--- NOTE | 2025-03-27 02:36 | P.OP_ITS ---
Operative Note Operative Note Date of Service: 03/27/25 Narrative: Procedure: Esophagogastroduodenoscopy Endoscopist: Marilu Kwan MD Indication: Food impaction Anesthesia Provider: Dr Scott Petersen Anesthesia Type: MAC ?? EGD Procedure:?? The procedure, indications, preparation and potential complications were reviewed with the patient, who indicated understanding and gave written informed consent to proceed. A physical exam was performed. The endoscope was introduced through the mouth, and advanced to the second part of duodenum. The mucosa was carefully examined on slow withdrawal of the endoscope. The patient tolerated the procedure well. There were no immediate complications.? ? EGD Findings:? * Esophagus:? A piece pf chicken measuring 2 cm was noted in middle esophagus. This was nudged gently into the stomach with the help of the scope. Mild erythema and edema at the level of food impaction was noted, remaining mucosa was otherwise normal. The Z line was at 38 cm. * Stomach:? Normal mucosa was noted in the stomach. Retroflexion was performed in the cardia. * Duodenum:? Normal mucosa was noted in the whole of the examined duodenum. ? EGD Impressions:? * Esophagitis * Food impaction (disimpacted) * Normal stomach * Normal duodenum ?? Recommendations:?? * Start omeprazole 20 mg once daily x 8-12 weeks * Avoid NSAIDs. * Outpatient barium swallow and follow up will be set up. Above has been reviewed with the patient.
[2025-03-27 02:50] VITALS: BP 123/88; PULSE 97; RESP 16; O2SAT 97
[2025-03-27 03:04] VITALS: BP 140/69; PULSE 91; RESP 16; TEMP 36.6; O2SAT 97
[2025-03-27 08:04] VITALS: BP 0/0; PULSE 0; RESP 0; TEMP -17.7; TEMP 0; O2SAT 0
== END 2025-03-27 03:15 | disposition home or self-care (01) ==
LOC: HO.ED 03-27 03:39 → HO.SSS 03-27 06:34
PROVIDERS: Emergency Provider Emergency Medicine Emergency Medical Services; PCP Internal Medicine; Visit Provider Internal Medicine
PROC: 0DJ08ZZ Inspection of Upper Intestinal Tract, Via Natural or Artificial Opening Endoscopic (ICD-10-PCS; CPT 43235; principal; 2025-03-27 01:45)
DX: T18.128A Food in esophagus causing other injury, initial encounter (principal); W44.F3XA Food entering into or through a natural orifice, initial encounter; K20.80 Other esophagitis without bleeding; I10 Essential (primary) hypertension; E66.01 Morbid (severe) obesity due to excess calories; Z68.42 Body mass index [BMI] 45.0-49.9, adult
CPT/HCPCS: 43235; 36415; 71045; 80048; 80076; 83690; 84484; 85025; 93005; 96361; 96374; 99284; 99285; J1610; J2003; J2704; J3010

== ENCOUNTER → 2025-03-26 22:32 | Outpatient (BNV) | payer OTHER, SELFPAY | PROVIDERS: Emergency Provider Emergency Medicine Emergency Medical Services; PCP Internal Medicine; Visit Provider Internal Medicine Cardiovascular Disease | DX: I44.4 Left anterior fascicular block (principal); R00.0 Tachycardia, unspecified | CPT/HCPCS: 93010 ==

== ENCOUNTER → 2025-03-26 22:40 | Outpatient (BNV) | payer OTHER, SELFPAY | PROVIDERS: Emergency Provider Emergency Medicine Emergency Medical Services; PCP Internal Medicine; Visit Provider Internal Medicine | DX: T18.128A Food in esophagus causing other injury, initial encounter (principal); W44.F3XA Food entering into or through a natural orifice, initial encounter; E66.01 Morbid (severe) obesity due to excess calories | CPT/HCPCS: 43247; 99284 ==

== ENCOUNTER → 2025-03-27 00:06 | Outpatient (BNV) | payer OTHER, SELFPAY | PROVIDERS: Emergency Provider Emergency Medicine Emergency Medical Services; PCP Internal Medicine; Visit Provider General Practice | DX: T17.228A Food in pharynx causing other injury, initial encounter (principal) | CPT/HCPCS: 71045 ==

== ENCOUNTER 2025-05-26 07:45 | Outpatient (REF) | payer OTHER, SELFPAY ==
--- OUTSIDE RECORDS SUMMARY | 2025-05-26 07:49 | XMS_ITS | Clinical Summary ---
Author Organization [facility] Address [address] [address] Phone Care Team Providers Care Bin Worker Name Role Phone James Florez Primary Care Provider [phone] Allergies No known active allergies Medications diazePAM (VALIUM) 5 MG tablet Take 1-2 tablets (5-10 mg total) by mouth every 6 (six) hours as needed for anxiety. 10 tablet 10/31/2022 Active lisinopril (PRINIVIL,ZESTR IL) 20 MG tablet Take 20 mg by mouth daily. Active meloxicam (MOBIC) 15 MG tablet Take 15 mg by mouth daily. Active hydroCHLOROthia zide 25 MG tablet 25 mg. 06/13/2010 Active Social History Tobacco Use Types Packs/Day Years Used Date Smoking Tobacco: Never Assessed Education Answer Date Recorded Are you interested in more education? Not on lele e 01/12/2023 Are you concerned about learning? Not on file 01/12/2023 No 01/12/2023 No 01/12/2023 Digital Access Answer Date Recorded No 02/12/2023 No 02/12/2023 No 02/12/2023 Reliable internet access at home? Not on file 02/12/2023 Device with a working camera? Not on file Intimate Partner Violence Answer Date R ecorded Are you denied basic needs s uch as food, clothing, or medical care? No 06/27/2024 In the past 12 months have y ou been in a relationship with a person who hurts, threatens, or tries to control you? No 06/27/2024 Are you denied basic needs s uch as food, clothing, or medical care? No 06/27/2024 In the past 12 months have y ou been in a relationship with a person who hurts, threatens, or tries to control you? No 06/27/2024 Sex and Gender Information Value Date Recorded Sex Assigned at Male 06/27/2024 9:45 AM EDT Legal Sex Male 9:34 PM EDT Gender Identity Male 06/27/2024 9:45 AM EDT Sexual Orientation Straight 06/27/2024 9: 45 AM EDT Last Filed Vital Signs Vital Sign Reading Time Taken Comments Blood Pressure 139/82 06/27/2024 11:18 AM EDT Pulse 106 06/27/2024 11:18 AM EDT Temperature 37.2 C (98.9 F) 06/27/2024 11:18 AM EDT Respiratory Rate 18 06/27/2024 11:18 AM EDT Oxygen Saturation 98% 06/27/2024 11:18 AM EDT Inhaled Oxygen Concentration - - Weight 128.4 kg (283 lb) 06/27/2024 9:48 AM EDT Height 175.3 cm (5' 9 ) 06/27/2024 9:48 AM EDT Body Mass Index 41.79 06/27/2024 9:48 AM EDT Plan of Treatment Not on file Medical Devices Not on file [place] [address] [place] [address] [place] [address] [place] [address] [place] [address] [place] [address] [place] [address] [place] [address] CHOICE Care Teams Bin Worker Relationship Specialty Start Date End Date James Florez DO [email or web address] PCP - General Internal Medicine 10/31/22 Additional Source Comments The information contained in this document represents components of the legal health record. It is not the complete legal health record.[facility]
[2025-05-26 13:01] LABS: MANUAL DIFF FLAG NO
[2025-05-26 13:17] LABS: Hematocrit 43.9 % (42.0-52.0); Hemoglobin 14.5 g/dl (14.0-18.0); Imm Gran Abs Auto 0.02 X10*3/uL (0.00-0.03); Imm Gran Pct Auto 0.4 % (0.0-0.4); Lymphocytes Absolute Auto 1.9 X10*3/uL (1.2-4.9); Mean Corpuscular HGB Conc 33.0 g/dl (31.0-36.0); Mean Corpuscular Hemoglobin 29.1 pg (27.0-33.0); Mean Corpuscular Volume 88.2 fL (80.0-98.0); NRBC Abs Auto 0.000 X10*3/uL (0.0-0.012); NRBC Pct Auto 0.0 /100WBC (0.0-0.2); Platelet Count 166 X10*3/uL (160-400); Red Blood Count 4.98 X10*6/uL (4.60-5.80); White Blood Count 5.4 X10*3/uL (4.8-10.8)
[2025-05-26 13:25] LABS: Hemoglobin A1C 191.3543 umol/L; Total Hemoglobin (HGBA1C) 3750.9193 umol/L
[2025-05-26 13:50] LABS: Alanine Aminotransferase 63 U/L (0-40); Albumin Level 4.4 g/dL (3.5-5.0); Alkaline Phosphatase 47 U/L (39-117); Anion Gap 11 (12-20); Aspartate Amino Transferase 35 U/L (5-37); Blood Urea Nitrogen 20 mg/dL (9-16); Calcium 9.1 mg/dL (8.4-10.2); Carbon Dioxide 28 mmol/L (22-29); Chloride 106 mmol/L (96-108); Estimated Glomerular Filt Rate > 60; Potassium 4.2 mmol/L (3.3-5.1); Sodium 141 mmol/L (135-145); Total Protein 7.0 g/dL (6.5-8.0)
[2025-05-26 13:54] LABS: Prostate Specific Antigen 5.42 ng/mL (<0.05-4.0)
== END 2025-05-26 07:46 | disposition home or self-care (01) ==
LOC: HO.MANLDS 07:45
PROVIDERS: Visit Provider Internal Medicine
DX: Z12.5 Encounter for screening for malignant neoplasm of prostate (principal); I10 Essential (primary) hypertension; E11.9 Type 2 diabetes mellitus without complications
CPT/HCPCS: 36415; 80053; 83036; 84153; 85025

== ENCOUNTER 2025-07-03 08:26 | Outpatient (REF) | payer OTHER, SELFPAY ==
--- OUTSIDE RECORDS SUMMARY | 2025-07-03 08:45 | XMS_ITS | Clinical Summary ---
Author Organization [facility] Address [address] [address] Phone Care Team Providers Care Stripper Soft Plastic Name Role Phone James Florez Primary Care Provider [phone] Allergies No known active allergies Medications diazePAM [...] file Medical Devices Not on file [place] [address] [address] [place] [address] [place] [address] [place] [address] [place] [place] [address] [place] [place] [address] CHOICE Care Teams Stripper Soft Plastic Relationship Specialty Start Date End Date James Florez DO [email or web address] PCP - General Internal Medicine 10/31/22 Additional Source Comments The information contained in this document represents components of the legal health record. It is not the complete legal health record.[facility]
--- OUTSIDE RECORDS SUMMARY | 2025-07-03 08:46 | XMS_ITS | Data Portability ---
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 This appointment was done with an established patient. 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) MDM MODERATE MUST MEET 2 OUT OF [...] THOROUGHLY DOCUMENT EACH ELEMENT THAT IS COVERED [email or web address] Not available 05/29/2025 12:09:50 Plan of Treatment Reminders Order Date Submit Date Provider Last Modified By Organization Details Last Modified Time Details Appointments FOLLOW UP 15 2025 09:15A M DR DING Not available Not available Not available Lab PSA, total + free, serum or plasma 2024 025 REPLACED BY [facility], [address] [place] [address], [id number], 05/29/2025 12:09:30 HbA1c (hemoglob in A1c), blood 2024 025 [email or web address], [address] [place] [address], [id number], 11/21/2024 09:46:23 CMP, serum or plasma 2024 025 [email or web address], [address] [place] [address], [id number], 11/21/2024 09:46:22 CBC 2024 025 [facility], [address] [place] [address], [id number], 11/21/2024 09:46:22 PSA, serum or plasma 2024 025 [email or web address], [address] [place] [address], [address], 11/21/2024 09:46:23 microalbu min, urine 2024 025 [facility], [address] [place] [address], [address], 11/21/2024 09:46:23 HbA1c (hemoglob in A1c), blood 2024 025 [facility], [address] [place] [address], [address], 11/17/2024 11:59:57 HbA1c (hemoglob in A1c), blood 2024 025 [facility], [address] [place] [address], [address], 11/17/2024 11:59:57 HbA1c (hemoglob in A1c), blood 2022 023 [facility], [address] [place] [address], [id number], 06/04/2023 12:35:26 Referral gastroent erologist referral 2024 025 [email or web address] 10 Harley Payne MD, [address] [place] [address], [id number], 06/01/2025 08:48:48 Procedures None recorded. Surgeries None recorded. Imaging None recorded. Medication Orders lorazepam 0.5 mg tablet 2024 025 [id number], [address] [place], [address], 11/21/2024 09:48:27 Patient TargetsNo targets recorded. Patient Instructions Encounter Date Encounter Id Patient Instructions Last Modified By Organization Details Last Modified Time 10/13/2024 [id number] prediabetes: car e instructions Not available 10/13/2024 10:43:12 sleep apnea: car e instructions Not available 10/13/2024 10:43:12 ojeda's palsy: care instructions Not available 10/13/2024 10:43:12 11/21/2024 [id number] pulse oximetry* Not available 11/21/2024 09:46:25 learning about type 2 diabetes Not available 11/21/2024 09:46:23 type 2 diabetes: care instructions Not available 11/21/2024 09:46:23 05/29/2025 [id number] prostate biopsy: about this test Not available 05/29/2025 12:08:18 sleep apnea: car e instructions Not available 05/29/2025 12:08:18 Reason for Referral 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 Referral for Screening for malignant neoplasm of colon Referring Physician: James Ding, Internal Medicine, Encounter Date: 05/29/2025 Results Created Date Observation Date Name Description Value Unit Range Abnormal Flag Note LastModifiedBy Organization Detail LastModifiedTime 11/14/19 25 11/14/2024 HbA1c (hemo globi n A1c), blood A1C 6.4 abnormal Not Available [facility] (Medical Records) [address] [place] [address], [address], 11/17/2024 11:12:34 11/22/1911/21/2024 pulse oxime try* Result 98% Not Available [facility] [address] [facility] [address], [place], [address], 11/16/2024 13:33:38 03/27/20 25 03/27/2025 XR, chest , 2 view No observ ation record ed. [address] (Medical Records) [address] [place], [address], 05/29/2025 12:03:09 03/27/20 25 03/27/2025 XR, chest , 2 view No observ ation record ed. [address] (Medical Records) [address] [place], [address], 05/29/2025 12:03:09 Result Notes None recorded. Problems Name Problem SNOMED Code Status Onset Date Resolution Date Notes Provider Name and Address Organization Details Recorded Time Hyperten sive disorder 11324094 Active 2019 Not Available [facility] 3 13:57:34 Serum choleste rol borderli [place] 354544146 Active 2019 Not Available [facility] 3 13:57:34 Obesity 975806356 Active 2019 Not Available [facility] 3 13:57:34 Obstruct derek sleep apnea syndrome 97569100 Active 2019 [facility] Available [facility] 13:57:34 Arthriti s of knee 366121989 Active 2020 Not Available [facility] 3 13:57:34 Impaired fasting glycemia 401609388 Active 2021 Not Available [facility] 13:57:34 Panic attack 739330988 Active 2022 RUIZ REYES [address] [place], [address], [facility] 3 11:51:45 Stress 17118892 Active 2022 James Ding DO [address] [place], [address], [facility] 3 14:11:06 Type 2 diabetes mellitus 29401446 Completed 202206/04/2023 Removal Reason: able to get down to his pre diab level with a1c of 5.8 James Ding DO [address] [place] [address], [address], [facility] 5 09:42:10 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 Medical Equipment None Reported. Allergies No known drug allergies Medications Name Sig Start Date Stop Date Status Note LastModified by Organization Details LastModified Time valacyclovi r 1 gram tablet TAKE 1 TABLET BY MOUTH THREE TIMES A DAY FOR 7 DAYS 11/21 completed Not Available Not Available Not Available meloxicam 15 mg tablet TAKE 1 TABLET BY MOUTH EVERY DAY active Not Available Not Available No t Available FreeStyle Lancets 28 gauge USE TWICE A DAY active Not Available Not Available No t Available lisinopril 20 mg tablet TAKE 1 TABLET BY MOUTH EVERY DAY active Not Available Not Available No t Available prednisone 20 mg tablet TAKE 3 TABLETS (60 MG TOTAL) BY MOUTH DAILY WITH BREAKFAST FOR 7 DAYS. 11/21 completed Not Available Not Available Not Available lorazepam 0.5 mg tablet TAKE 1 TABLET BY MOUTH DIRECTED FOR 10 DAYS, FOR 1 HOUR BEFORE AIRLINE FLIGHT. active Not Available Not Available No t Available omeprazole 20 mg capsule,del ayed release TAKE 1 CAPSULE BY MOUTH EVERY DAY active Not Available [...] Not Available Not Available Not Available FreeStyle Tor 3 [place] check gluc 6 times per day 2024 active Not Available Not Available Not Avai lable Vitals Date Recorded Body height Body mass index (BMI) Body weight Heart rate Oxygen saturation Oxygen saturation in Arterial blood by Pulse oximetry Systolic And Diastolic Provider Name and Address Organization Details Last Updated DateTime 5 177.17 cm 41 kg/m2 930826. 23 g 115 /min 98 % 98 % 160/100 mm[Hg] Dacia Paul [facility] 5 10:23:38 Date Recorded Body height Body mass index (BMI) Body weight Heart rate Oxygen saturation Oxygen saturation in Arterial blood by Pulse oximetry Systolic And Diastolic Provider Name and Address Organization Details Last Updated DateTime 5 177.17 cm 42.4 kg/m2 683233. 92 g 96 /min 98 % 98 % 150/94 mm[Hg] Lisha Fierro [facility] 5 09:25:44 Date Recorded Body height Body mass index (BMI) Body weight Heart rate Oxygen saturation Oxygen saturation in Arterial blood by Pulse oximetry Systolic And Diastolic Provider Name and Address Organization Details Last Updated DateTime 4 177.17 cm 41 kg/m2 476279. 23 g 103 /min 98 % 98 % 130/64 mm[Hg] James Ding, DO [address] [place], [address], [facility] 4 10:09:10 Date Recorded Body height Body mass index (BMI) Body weight Oxygen saturation Oxygen saturation in Arterial blood by Pulse oximetry Heart rate Systolic And Diastolic Provider Name and Address Organization Details Last Updated DateTime 5 177.17 cm 42.8 kg/m2 567825. 42 g 96 % 96 % 90 /min 124/70 mm[Hg] Gracy Steve [facility] 5 11:32:44 Date Recorded Body height Body mass index (BMI) Body weight Heart rate Oxygen saturation Oxygen saturation in Arterial blood by Pulse oximetry Systolic And Diastolic Provider Name and Address Organization Details Last Updated DateTime 3 177.17 cm 41.2 kg/m2 116902. 83 g 85 /min 98 % 98 % 136/80 mm[Hg] Dacia Paul [facility] 3 11:42:50 Social History Question Answer Notes LastModified by Organizat ion Details LastModified Time Tobacco Smoking Status Never Smoker Not Available [facility] 07/20/2020 03:36:23 What Was The Date Of Your Most Recent Tobacco Screening? 05/29/2025 [email or web address] Information not available 05/29/2025 Sex: Unknown Functional Status Question Answer Note LastModified by Organization D etails LastModified Time Do you or have you ever used any other forms of tobacco or nicotine? No [email or web address] Information not available 11/10/2022 Mental Status None recorded. Family History Nothing Reported. Medical History No medical history recorded. Immunizations Vaccine Type Date Status Note Provider Nam e and Address Organization Details Recorded Time Td (adult) 07/23/2021 completed Not Available [facility] 10/31/2022 13:57:34 COVID-19, mRNA, LNP-S, PF, 100 mcg/0.5mL dose or 50 mcg/0.25mL dose 09/20/2021 completed Martha Gencarelle julieta [facility] Internal [facility] 11/10/2022 13:32:47 COVID-19, mRNA, LNP-S, PF, 100 mcg/0.5mL dose or 50 mcg/0.25mL dose 10/13/2020 completed Martha Gencarelle julieta [facility] Internal [facility] 11/10/2022 13:32:47 COVID-19, mRNA, LNP-S, PF, 100 mcg/0.5mL dose or 50 mcg/0.25mL dose 11/13/2020 completed Martha Gencarelle julieta [facility] 11/10/2022 13:32:47 Past Encounters Encounter ID Performer Location Encounter Start Date Encounter Closed Date Diagnosis/Indication Diagnosis SNOMED-CT Code Diagnosis ICD10 Code Diagnosis IMO Codes Diagnosis Note [id number] James Ding [facility] [address] [facility] [address] [address] 09/30/2019 09:01:55 09/30/2019 09:36:07 Hypertensive disorder 57672835 I10 will need to follow as his bp is borderline and his wgt gain is huge Serum chol esterol borderline high 153684889 E78.00 will need fbw Obesity 110801836 E66.9 will need to go on crash diet etc Pain in left knee 642013 0585 67367 M25.562 hurt overt the summer xr needed ? meniscal injury Obstructiv e sleep apnea syndrome 71739224 G47.33 needs study Pain of right heel 00966 18222 532629 M79.671 needs xr [id number] James Ding [facility] [address] [facility],[place] [address] 10/10/2019 14:31:21 10/10/2019 15:40:17 Obstructive sleep apnea syndrome 32609460 G47.33 needs cpap device will call Hypertensive disorder 38 797671 I10 will need to follow as his bp is borderline and his wgt gain is huge await after tx for sleep apnea Osteoarthr itis of knee 186964130 M17.9 will need to follow wgt loss is mahoney [id number] James Ding [facility] [address] [facility] [address] [address] 01/12/2020 13:51:13 01/12/2020 14:31:33 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.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 1144427154 98758 G56.12 Obstructiv e sleep apnea syndrome 12834067 G47.33 doing great with new cpap device Hypertensive disorder 38 597272 I10 will cont lisinopril for now but anticipate we [place] [id number] James Ding [facility] [address] [facility] [address] [address] 02/06/2020 09:18:38 02/06/2020 09:54:18 Hypertensive disorder 39436736 I10 will cont lisinopril for now but anticipate we will be able to lower dose as MANNY d cont tx Obstructiv e sleep apnea syndrome 40842857 G47.33 doing great with new cpap device Obesity 210307488 E66.9 will need to keep exercising and working hard no wgt loss but pants fitting much better [id number] James Ding [facility] [address] [facility], [place] [facility] [place] [address] 01/14/2021 09:05:42 01/14/2021 11:20:17 Hypertensive disorder 65383089 I10 will cont lisinopril for now but anticipate we will be able to lower dose as MANNY d cont tx Serum chol esterol borderline high 045613346 E78.00 will need fbw Arthritis of knee 437059 002 M13.869 [id number] James Ding [facility] Internal [facility] [address] [facility], [place] [address] 07/20/2021 09:01:30 07/20/2021 09:52:00 Hypertensive disorder 74305579 I10 will cont lisinopril for now but anticipate we will be able to lower dose as MANNY d cont tx Obstructiv e sleep apnea syndrome 00370660 G47.33 doing great with new cpap device Liver func tion tests outside reference range 603441820 R94.5 elevated and he will stop etoh and rechk Impaired f asting glycemia 226542991 R73.01 Hearing loss 49922492 H9 1.93 [id number] James Ding [facility] [address] [facility], [place] [address] 02/17/2022 11:58:21 02/17/2022 13:03:03 Hypertensive disorder 92228522 I10 will cont lisinopril for now but anticipate we will be able to lower dose as MANNY d cont tx Serum chol esterol borderline high 605166572 E78.00 will need fbw Screening for malignant neoplasm of colon 041152268 Z12.11 will order Impaired f asting glycemia 073987264 R73.01 a1c is 6.2 and we will cont to follow [id number] James Ding [facility] [address] [facility],[place] [address] 11/10/2022 13:32:01 11/10/2022 14:18:04 Hypertensive disorder 82897672 I10 will cont lisinopril for now but anticipate we will be able to lower dose as MNANY cont tx Impaired f asting glycemia 316872477 R73.01 a1c is 6.2 and we will cont to follow Stress 85810355 Z73.3 [id number] James Ding [facility] [address] [facility],[place] [address] 03/14/2023 09:21:34 03/14/2023 10:29:11 Hypertensive disorder 17783613 I10 will cont lisinopril for now but anticipate we will be able to lower dose as MANNY cont tx Obstructiv e sleep apnea syndrome 25550110 G47.33 doing great with new cpap device Screening for malignant neoplasm of colon 822459399 Z12.11 will order Type 2 olga betes mellitus 68609250 E11.9 new onset long discussion [id number] James Ding [facility] [address] [facility],[place] [address] 06/04/2023 11:09:01 06/04/2023 12:58:29 Hypertensive disorder 11396933 I10 will cont lisinopril for now but anticipate we will be able to lower dose as MANNY cont tx Impaired f asting glycemia 228609697 R73.01 a1c is 6.2 and we will cont to follow [id number] James Ding [facility] [address] [facility],[place] [address] 12/21/2023 10:01:33 12/21/2023 10:59:07 Hypertensive disorder 67216638 I10 will cont lisinopril for now but anticipate we will be able to lower dose as MANNY cont tx Obesity 662948267 E66.9 will need to keep exercising and working hard no wgt loss but pants fitting much better Impaired f asting glycemia 667501985 R73.01 a1c is 5.9 doing great and we will cont to follow [id number] James Ding [facility] [address] [facility], [place] [address] 10/13/2024 10:16:25 10/13/2024 10:47:53 Hypertensive disorder 93185504 I10 stress at home is a factorwill check bp at home and bring in readings in 1 month 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 Obstructiv e sleep apnea syndrome 01787866 G47.33 doing great with new cpap device Impaired f asting glycemia 771563780 R73.01 a1c is 5.9 doing great and we will cont to follow [id number] James Ding [facility] [address] [facility] [address] [address] 11/21/2024 09:06:39 11/21/2024 10:11:01 Hypertensive disorder 02661275 I10 stress at home is a factorwill check bp at home and bring in readings in 1 month Impaired f asting glycemia 609434313 R73.01 doing worse now up to 6.4 and is worse control has gained another 10 lbs Obstructiv e sleep apnea syndrome 33815836 G47.33 doing great with new cpap device Obesity 740060521 E66.9 has gained wgt again Depression screening 171 699070 Z13.31 SCREENING NEGATIVE Type 2 olga betes mellitus 93791357 E11.9 new onset long discussion Fear of flying 205594759 F40.243 [id number] James Ding [facility] [address] [facility] [address] [address] 05/29/2025 10:50:47 05/29/2025 12:17:53 Depression screening 982287156 Z13.31 SCREENING NEGATIVE Hypertensive disorder 38 020712 I10 stress at home is a factorwill check bp at home and bring in readings in 1 month Type 2 olga betes mellitus 10845258 E11.9 new onset long discussion Obstructiv e sleep apnea syndrome 18496199 G47.33 doing great with new cpap device Prostate s pecific antigen above reference range 840006335 R97.20 11084 we will rechk Screening for malignant neoplasm of colon 115064560 Z12.11 [id number] will order Health Concerns Section Related Observation LastModified by Organization Detai ls LastModified Time None Recorded Concern Status LastModified by Organization Details LastModified Time None Recorded Advance Directives Directive None Recorded Payers Insurance Date Sequence Insurance Name Policy Number Policy [place] Covered Member ID [place] Member ID Guarantor Name 05/26/2025 1 [facility] (PPO) [id number] 2 Jose C Duarte [id number] Jose C Fish 11/10/2022 1 [facility] [employer] INDEMNITY PLAN (INDEMNITY) [id number] 2 Jose C Fish [id number] Jose C Duarte Notes Date Note Type Note Provider Name and Address Organization Details Recorded Time 3 text/htm l ROS as noted in the HPI here for rechk and is doing great and is eating betterand is doing ok with this he has been able to drop 20+lbs!!!heis a1c is no w down to prediabet level of 5.8!! James Ding DO [address] [place], [address], [facility] 06/04/2023 12:31:46 4 text/htm l Care Management - HypertensionReported by PatientHPIFor self care, patient reportsnot under emotional stress. For severity, patient reportssymptoms are improvinganddoes not interfere with daily activities. For associated symptoms, patient reportsno dizziness,no lightheadedness,no chest pain,no shortness of breath,no palpitations,no edema,no calf muscle cramps,no blurred vision,no confusion,no headaches, andno fatigue.ROS as noted in the HPI here for rechk and is doing good with diet and is eating much betterhas not lost wgt but clothes are def fitting betterhas cut back on [id number] is 5.9 James Ding DO [address] [place], [address], [facility] 12/21/2023 10:50:35 5 text/htm l Care Management - HypertensionReported by PatientHPIFor self care, patient reportsnot under emotional stress. For severity, patient reportssymptoms are improvinganddoes not interfere with daily activities. For associated symptoms, patient reportsno dizziness,no lightheadedness,no chest pain,no shortness of breath,no palpitations,no edema,no calf muscle cramps,no blurred vision,no confusion,no headaches, andno fatigue.ROS as noted in the HPI here for rechk and is doing ok except for the stresshe feels well very active but put on some weightno major issues other than family stresswill be getting abp cuff for home James RuizAntione Ding DO [address] [place], [address], [facility] 10/13/2024 10:44:36 5 text/htm l Care Management - DiabetesReported by [facility] self care, patient reportsseeing eye doctor yearly for dilated eye exam,checking feet regularly,normal range of home blood sugars (in the low 100s), andno side effects from medications. For associated symptoms, patient reportssymptoms are usually well controlled,no fatigue,no dizziness,no excessive sweating,no headaches,no confusion,no increased thirst,no increased appetite,no increased urination,no blurred vision,no numbness of feet, andno calluses on feet. Care Management - HypertensionReported by PatientSP[facility]OS[facility]ITALor self care, patient reportsnot under emotional stress. For severity, patient reportssymptoms are improvinganddoes not interfere with daily activities. For associated symptoms, patient reportsno dizziness,no lightheadedness,no chest pain,no shortness of breath,no palpitations,no edema,no calf muscle cramps,no blurred vision,no confusion,no headaches, andno fatigue.ROS as noted in the HPI feels well overallstates is doing better and bp is stable James Ding DO [address] [place], [address], [facility] 11/21/2024 09:49:11 5 text/htm l Care Management - HypertensionReported by [facility] self care, patient reportsnot under emotional stress. For severity, patient reportssymptoms are improvinganddoes not interfere with daily activities. For associated symptoms, patient reportsno dizziness,no lightheadedness,no chest pain,no shortness of breath,no palpitations,no edema,no calf muscle cramps,no blurred vision,no confusion,no headaches, andno fatigue. Care Management - DiabetesReported by PatientHPIFor self care, patient reportsseeing eye doctor yearly for dilated eye exam,checking feet regularly,normal range of home blood sugars (in the low 100s), andno side effects from medications. For associated symptoms, patient reportssymptoms are usually well controlled,no fatigue,no dizziness,no excessive sweating,no headaches,no confusion,no increased thirst,no increased appetite,no increased urination,no blurred vision,no numbness of feet, andno calluses on feet.ROS as noted in the HPI here for rechk doing well has cut back on etohrelates feels well James Ding, DO [address] [facility], [place], [address], [facility] 05/29/2025 12:14:22
[2025-07-06 13:39] LABS: Free Prostate Spec Ag 0.9 ng/mL; Percent Free Prostate Spec Ag 13 % (calc) (>25)
== END 2025-07-03 08:27 | disposition home or self-care (01) ==
LOC: HO.MANLDS 08:26
PROVIDERS: Visit Provider Internal Medicine
DX: R97.20 Elevated prostate specific antigen [PSA] (principal)
CPT/HCPCS: 36415; 84154